=== PATIENT | female | born 1985 | race Two or more races ===

== ENCOUNTER → 2024-12-19 | Outpatient (CLI) | payer MEDICAID, SELFPAY ==
--- NOTE | 2024-12-19 14:10 | XR_ITS ---
Examination: Bilateral hands, 6 views. Technique: AP, Oblique, Lateral each hand total 6 views Date and time of exam: December 19, 2024 1428 hrs. Indications: Bilateral hand pain beginning 2016 Findings: Demineralization Mild juxta-articular bone No fracture or dislocation No cortical bone destruction No opaque foreign bodies Impression: Mild juxta-articular bone demineralization. No erosive or other significant arthritic change involving either hand No fracture or dislocation involving either hand
== END | disposition home or self-care (01) ==
LOC: CDIM 14:03
PROVIDERS: PCP Nurse Practitioner; Referring Provider Nurse Practitioner; Visit Provider Nurse Practitioner
DX: M25.641 Stiffness of right hand, not elsewhere classified (principal); M25.642 Stiffness of left hand, not elsewhere classified
CPT/HCPCS: 73130